=== PATIENT | female | born 1960 ===

== ENCOUNTER 2017-10-26 07:58 | Day surgery (SDC) | payer OTHER ==
--- NOTE | 2017-10-15 14:39 | HP ---
PREOPERATIVE HISTORY AND PHYSICAL: DATE OF ADMISSION: 10/26/17 [facility] CHIEF COMPLAINT: Triggering of the right middle and ring finger. HISTORY OF PRESENT ILLNESS: Cynthia is a 57-year-old woman who I have seen in the past for various issues including other trigger fingers. She is now having locking of right middle and ring finger for the past 4 months. She does not recall a specific injury. She has pain making a fist and cannot make a full fist. She has not had treatment for this problem. She rates her pain as 8/10. She denies numbness and tingling. PAST MEDICAL HISTORY: 1. Hypertension. 2. Hyperlipidemia. 3. Arthritis. 4. Hypothyroidism. 5. Type 2 diabetes. 6. Melanoma. PAST SURGICAL HISTORY: 1. Hysterectomy. 2. Back surgery. 3. Carpal tunnel release. 4. Neck surgery. 5. Foot surgery. MEDICATIONS: 1. Lisinopril 5 mg p.o. daily. 2. Levothyroxine sodium 137 mcg p.o. daily. 3. Simvastatin 20 mg p.o. daily. 4. Metformin HCL 500 mg p.o. b.i.d. 5. Magnesium supplement. 6. Calcium plus vitamin D 600/200 mg p.o. b.i.d. 7. Fish oil 1000 mg p.o. daily. 8. Red yeast rice 600 mg p.o. b.i.d. 9. Black cohosh. ALLERGIES: BACTRIM, CELEBREX, SULFAMETHOXAZOLE, ZAROXOLYN. FAMILY HISTORY: Diabetes, heart disease, hypertension. SOCIAL HISTORY: She lives with her spouse. She works as a preventive maintenance coordinator. She is a former smoker. She denies alcohol use. REVIEW OF SYSTEMS: Review of systems is negative for cephalic, cardiovascular, respiratory, gastrointestinal, genitourinary, other musculoskeletal, skin, neurologic, endocrine, and hematologic symptoms. PHYSICAL EXAMINATION GENERAL: She is a healthy-appearing pleasant female in minimal distress, at rest. VITAL SIGNS: Height is 67.5 inches, pulse 78, blood pressure 122/70. HEENT: Unremarkable. Her eye movements are concentric. NECK: She has good range of motion of her neck without pain. No masses are palpated. LUNGS: Clear to auscultation. Good inspiratory effort. No wheezing. CARDIAC: Regular rate and rhythm without murmur. PERIPHERAL VASCULAR: She has palpable pulses and no peripheral edema. NEUROLOGICAL: She is alert and oriented without focal deficit. EXTREMITY: She has tenderness at the A1 rufino of the right middle and ring fingers. She cannot make a full tight fist. She has full extension of her fingers. Her neurovascular function is intact. Skin is intact. IMPRESSION: Right middle and ring finger trigger finger. PLAN: Plan is for right middle and ring finger trigger release. Surgical procedure, risks and benefits were explained to the patient today and she agrees to proceed. I will see her back in followup for recheck approximately 10 days postop. [id number]/[facility] #: [id number] SUDEEP
[~2017-10-26 07:58] MED LIST: Buffered Lidocaine 0.9% SYRIN* 5 ML/SYR SYRINGE INTRADERM ONE; Famotidine IV* 10 MG/ML 2 ML (20 mg) IV ONE; Famotidine IV* 10 MG/ML 2 ML (20 mg) ONE
[2017-10-26] MEDS ORDERED: Acetaminophen TAB* 325 MG PO PRN (08:09)
[2017-10-26] MEDS ORDERED: DiMENhydriNATE IV* 50 MG/ML VIAL IV PUSH PRN (08:09)
[2017-10-26] MEDS ORDERED: Naloxone* 0.4 MG/ML 1 ML VIAL IV PRN (08:09)
[2017-10-26] MEDS ORDERED: fentaNYL* 50 MCG/ML 2 ML VIAL (100 MCG VIAL) ONE (08:26)
[2017-10-26] MEDS ORDERED: Midazolam* 1 MG/ML 5 ML VIAL (5 MG) ONE (08:27)
[2017-10-26] MEDS ORDERED: Lidocaine 1% INJ* 10 MG/ML 30 ML SDV ONE (09:02)
[2017-10-26] MEDS ORDERED: Ketorolac INJ* 30 MG/ML 1 ML VIAL ONE (09:30)
[2017-10-26] MEDS ORDERED: Lidocaine 2% PF * 5 ML VIAL ONE (09:30)
[2017-10-26] MEDS ORDERED: Ondansetron INJ* 2 MG/ML VIAL ONE (09:30)
[2017-10-26] MEDS ORDERED: Propofol* 10 MG/ML 20 ML BTL IV PUSH ONE (09:30)
[2017-10-26 09:48] VITALS: BP 114/69
--- NOTE | 2017-10-27 02:20 | OP ---
CC: Dr. Pearson OPERATIVE NOTE: DATE OF OPERATION: 10/26/17 DATE OF : 60 SURGEON: Dr. Pearson. [employer]: YORDAN Nieves ANESTHESIA: Local MAC. PRE-OP DIAGNOSIS: Triggering of the right long and ring fingers. POST-OP DIAGNOSIS: Triggering of the right long and ring fingers. OPERATIVE PROCEDURE: Right long and ring finger trigger release. ESTIMATED BLOOD LOSS: Zero. TOURNIQUET TIME: Approximately 10 minutes. INDICATION FOR PROCEDURE: Cynthia is a 57-year-old female with painful locking of her right long and ri ng fingers. She presents for trigger finger releases. DESCRIPTION OF PROCEDURE: The patient was brought to the operating room, was given a sedation anesth etic and a local infiltration of 10 cc of 1% plain lidocaine in the palm of her right hand. The skin of her right hand and forearm was prepped and draped in the usual sterile fashion. The hand and for earm were exsanguinated and the tourniquet elevated to 250 mmHg. A transverse incision was made cent ered over the long and ring finger A1 pulleys. Dissected bluntly through the subcutaneous tissue deepak n to the pulleys, which were then incised longitudinally completely releasing the flexor tendons, whi ch were in good condition in both fingers. The wound was irrigated and the skin edges reapproximated with 4-0 nylon suture. The wound was dressed with Xeroform, 4x4, Webril, and an Sanjeev wrap. The sara ent tolerated the procedure well, was brought to the recovery room in good condition. [id number]/[facility] #: [id number]
== END 2017-10-26 10:15 | disposition home or self-care (01) ==
LOC: OREAST 07:58
PROVIDERS: ATTEND Orthopaedic Surgery
DX: M65.331 Trigger finger, right middle finger (principal); M65.341 Trigger finger, right ring finger; E11.9 Type 2 diabetes mellitus without complications; Z79.84 Long term (current) use of oral hypoglycemic drugs; I10 Essential (primary) hypertension; E78.5 Hyperlipidemia, unspecified; E03.9 Hypothyroidism, unspecified; Z85.820 Personal history of malignant melanoma of skin
CPT/HCPCS: J1885; J2250; J2405; J2704; J3010

== ENCOUNTER 2021-10-17 07:30 | Inpatient (IN) ==
[2021-11-09] MEDS ORDERED: Scopolamine 1 mg/72hr PATCH TRANSDERM SCH (06:00)
[2021-11-09] MEDS ORDERED: Buffered Lidocaine 1% SYRIN 1 ml INTRADERM ONE (06:00)
[2021-11-09] MEDS ORDERED: Lactated Ringers 1000 ml BAG 1,000 ML IV SCH (06:00)
[2021-11-09] MEDS ORDERED: Scopolamine 1 mg/72hr PATCH ONE (07:54)
[2021-11-09] MEDS ORDERED: ceFAZolin 2 GM PREMIX 2 GM/50 ML BAG ONE (07:55)
[2021-11-09] MEDS ORDERED: Propofol 10 MG/ML 20 ML BTL ONE ×2 (07:58→08:10)
[2021-11-09] MEDS ORDERED: Rocuronium 50 mg VIAL 10 mg/ml 5 ml VIAL (50 mg) ONE ×2 (08:02→11:43)
[2021-11-09] MEDS ORDERED: fentaNYL 100 mcg/2 ml 50 MCG/ML VIAL ONE ×2 (08:04→11:59)
[2021-11-09] MEDS ORDERED: Lidocaine 2% PF 5 ML VIAL ONE (08:04)
[2021-11-09] MEDS ORDERED: Midazolam 5 mg/5 ml VIAL 1 mg/ml 5 ml VIAL (5 mg) ONE (09:02)
[2021-11-09] MEDS ORDERED: Lidocaine 1% MPF 5 ML VIAL ONE (09:08)
[2021-11-09] MEDS ORDERED: ROPIVACAINE 5 MG/ML 30 ML BTL (0.5%) ONE (09:08)
[2021-11-09] MEDS ORDERED: Vancomycin 1,000 MG VIAL ONE (09:20)
[2021-11-09] MEDS ORDERED: Naloxone 0.4 mg VIAL 0.4 mg/ml 1 ml VIAL IV PRN (09:36)
[2021-11-09] MEDS ORDERED: Glycopyrrolate IV 0.2 MG/ML 1 ML VIAL ONE (10:50)
[2021-11-09] MEDS ORDERED: Ondansetron 4 mg VIAL 2 MG/ML 2 ml VIAL ONE (10:55)
[2021-11-09] MEDS ORDERED: Dexamethasone IV 4 MG/ML VIAL 1 ml VIAL ONE (10:55)
[2021-11-09] MEDS ORDERED: Esmolol 10 MG/ML 10 ML (100 mg) ONE (13:26)
[2021-11-09] MEDS ORDERED: Ondansetron ODT 4 mg TAB 4 MG TAB PO PRN (13:50)
[2021-11-09] MEDS ORDERED: Ondansetron 4 mg VIAL 2 MG/ML 2 ml VIAL IV PRN (13:50)
[2021-11-09] MEDS ORDERED: Magnesium Hydroxide LIQ 30 ML UDC PO PRN (13:50)
[2021-11-09] MEDS ORDERED: Morphine 2 MG/ML SYRINGE IV PRN (13:50)
[2021-11-09] MEDS ORDERED: Lactulose 30 ml UDC PO PRN (13:50)
[2021-11-09] MEDS ORDERED: HYDROmorphone 1 MG/1 ML SYRINGE ONE (14:35)
[2021-11-09] MEDS: HYDROmorphone 1 MG/1 ML SYRINGE IV PRN ×5 (14:37→15:43)
[2021-11-09] MEDS ORDERED: Dextrose 50% Syringe 50 ml 25 GM/50 ML SYRINGE IV PUSH PRN (14:41)
[2021-11-09] MEDS: ceFAZolin 1 GM ADVAN 1 GM in NS 0.9% 50 ML 50 ML IVPB SCH (17:14)
[2021-11-09] MEDS: Lactated Ringers 1000 ml BAG 1,000 ML IV SCH (19:00)
[2021-11-09] MEDS: Magnesium Hydroxide LIQ 30 ML UDC PO SCH (21:17)
[2021-11-10] MEDS: ceFAZolin 1 GM ADVAN 1 GM in NS 0.9% 50 ML 50 ML IVPB SCH ×2 (02:14→10:21)
[2021-11-10 04:54] LABS: Hematocrit 33 % (35-47); Hemoglobin 10.9 g/dL (12.0-16.0); Mean Platelet Volume 7.7 fL (7.4-10.4); Platelet Count 214 10^3/uL (150-450)
[2021-11-10] MEDS: Lactated Ringers 1000 ml BAG 1,000 ML IV SCH (05:11)
[2021-11-10 05:25] LABS: Calcium 8.2 mg/dL (8.6-10.3); Potassium 4.6 mmol/L (3.5-5.0); eGFR CKD-EPI 73.7 (>60)
[2021-11-10] MEDS: Magnesium Hydroxide LIQ 30 ML UDC PO SCH (08:12)
[2021-11-10] MEDS ORDERED: Vitamin THERAPEUTIC TAB PO SCH (09:00)
[2021-11-10 14:35] VITALS: BP 128/72
== END 2021-11-10 17:00 | disposition home or self-care (01) | DRG 315 ==
LOC: AA 11-09 07:31 → INTOOBSV 11-09 07:31 → SSU 11-09 16:27
PROVIDERS: ADMIT Orthopaedic Surgery; ATTEND Orthopaedic Surgery